=== PATIENT | male | born 1940 | race Caucasian/White ===

== ENCOUNTER 2024-03-07 11:46 | Inpatient (IN) | payer OTHER, MEDICARE ==
[~2024-03-07] VITALS: Ht 170.2 cm; Wt 55.5 kg
[2024-03-07 15:10] VITALS: BP 128/75
[2024-03-07] MEDS ORDERED: CLOPIDOGREL75 M2 PO (15:42)
[2024-03-07] MEDS ORDERED: LATANOPROST 2.2.5 ML OU (15:48)
[2024-03-07] MEDS ORDERED: LOSARTAN POTASS50 M1 PO (16:00)
[2024-03-07] MEDS ORDERED: SYNTHROID0.05 MG PO (16:02)
[2024-03-07] MEDS ORDERED: ROSUVASTATIN CA10 MG PO (16:03)
[2024-03-07] MEDS ORDERED: METFORMIN HYD1000 MG PO (16:08)
[2024-03-07] MEDS ORDERED: CETIRIZINE HCL10 MG PO (16:11)
[2024-03-07] MEDS ORDERED: ADULT LOW DOSE81 MG PO (16:14)
[2024-03-07] MEDS ORDERED: PROTONIX TR40 M1 PO (16:15)
[2024-03-07] MEDS ORDERED: LASIX20 M1 PO (16:16)
[2024-03-07] MEDS ORDERED: BENADRYL ALLERG25 M1 PO (16:17)
[2024-03-07] MEDS ORDERED: CYANOCOBAL1000 MCG/1 IM (16:24)
[2024-03-07] MEDS ORDERED: GLUCOSAMINE CH1 EAC5 PO (16:33)
[2024-03-07] MEDS ORDERED: HYDROCORTISON28.4 GM TP (16:35)
[2024-03-07] MEDS ORDERED: LIDODERM1 EACH TP (16:37)
[2024-03-07] MEDS ORDERED: NITROSTAT0.4 M1 SL (16:39)
[2024-03-07] MEDS ORDERED: PHILLIPS PO (16:39)
[2024-03-07] MEDS ORDERED: [UNRECOGNIZED DRUG - OTHER] PO (16:46)
[2024-03-07] MEDS ORDERED: PROBIOTIC1 EAC1 PO (16:47)
[2024-03-07] MEDS ORDERED: KLOR-CON 1010 MEQ PO (16:49)
[2024-03-07] MEDS ORDERED: PRESERVISION A1 EAC2 PO (16:49)
[2024-03-07] MEDS ORDERED: VITAMIN B-650 M2 PO (16:50)
[2024-03-07] MEDS ORDERED: VITAMIN D3125 MCG PO (16:52)
[2024-03-07] MEDS ORDERED: NOVOLOG FLEX100 U/ML SQ (17:03)
[2024-03-07] MEDS ORDERED: Ibuprofen 200 MG TAB PO PRN (17:15)
[2024-03-07] MEDS ORDERED: Polyethylene Glycol 3350 Powder 17 GM PACKET PO PRN (17:15)
[2024-03-07] MEDS ORDERED: Dextrose 50% Water 25 GM/50 ML SYRINGE IV PRN (17:30)
[2024-03-07] MEDS ORDERED: Dextrose (Glucose) 15 GM (4 x 3.75 GM) Chewable TAB PACK PO PRN (17:30)
[2024-03-07] MEDS ORDERED: oxyCODONE 5 MG TAB PO PRN (17:30)
[2024-03-07] MEDS ORDERED: diphenhydrAMINE 25 MG CAP PO PRN (17:30)
[2024-03-07] MEDS ORDERED: Glucagon 1 MG VIAL IM PRN (17:30)
[2024-03-07 19:00] VITALS: BP 121/71
[2024-03-07] MEDS ORDERED: Insulin Lispro (HumaLOG) SQ SCH (21:00)
[2024-03-07] MEDS ORDERED: Latanoprost 0.005% Ophth Soln 2.5 ML BOTTLE OP SCH (21:00)
[2024-03-08] MEDS ORDERED: Furosemide 20 MG TAB PO SCH (07:00)
[2024-03-08 07:37] LABS: BASO # 0.02 K/mm3 (0.02-0.10); EOS # 0.22 K/mm3 (0.04-0.40); EOS % 2.5 % (0.0-4.0); HEMATOCRIT 38.4 % (42.0-52.0); HEMOGLOBIN 12.1 g/dL (13.5-18.0); LYMPH# 1.86 K/mm3 (1.50-4.00); MEAN CELL VOLUME 103 fl (78-100); MEAN CORPUSCULAR HEMOGLOBIN 32 pg (27-31); MEAN CORPUSCULAR HGB CONC 32 g/dL (33-37); MEAN PLATELET VOLUME 10.8 fl (7.4-10.4); MONO # 0.76 K/mm3 (0.20-0.80); NEU # 5.84 K/mm3 (1.40-6.50); PLATELET COUNT 264 K/mm3 (130-400); RED BLOOD COUNT 3.73 M/mm3 (4.20-5.60); WHITE BLOOD COUNT 8.7 K/mm3 (4.8-10.8)
[2024-03-08 07:46] LABS: CALCIUM 9.6 mg/dL (8.3-10.5)
[2024-03-08 07:47] LABS: TOTAL PROTEIN 7.6 g/dL (6.2-8.1)
[2024-03-08 07:49] LABS: TOTAL BILIRUBIN 0.6 mg/dL (0.2-1.2)
[2024-03-08 07:54] VITALS: BP 109/76
[2024-03-08 07:54] LABS: MAGNESIUM 1.93 mg/dL (1.60-2.60)
[2024-03-08] MEDS ORDERED: Clopidogrel 75 MG TAB PO SCH (09:00)
[2024-03-08] MEDS ORDERED: Cetirizine 10 MG TAB PO SCH (09:00)
[2024-03-08] MEDS ORDERED: Lidocaine 4% Topical Patch TP SCH (09:00)
[2024-03-08] MEDS ORDERED: Magnesium Oxide 400 MG TAB PO SCH (09:00)
[2024-03-08] MEDS ORDERED: Losartan 50 MG TAB PO SCH (09:00)
[2024-03-08] MEDS ORDERED: Cholecalciferol (Vit D3) 25 MCG (1,000 Units) TAB PO SCH ×2 (09:00)
[2024-03-08 19:00] VITALS: BP 112/70
[2024-03-09 07:20] VITALS: BP 124/75
[2024-03-09] MEDS ORDERED: Furosemide 20 MG TAB PO SCH (09:00)
[2024-03-09 19:00] VITALS: BP 110/71
[2024-03-10 07:10] VITALS: BP 130/74
[2024-03-10 19:57] VITALS: BP 94/58
[2024-03-11] MEDS ORDERED: Docusate Sodium 100 MG CAP PO SCH (02:47)
[2024-03-11 07:15] VITALS: BP 115/65
[2024-03-11 19:00] VITALS: BP 115/66
[2024-03-12 07:20] VITALS: BP 143/73
[2024-03-12 09:11] LABS: BASO # 0.04 K/mm3 (0.02-0.10); EOS # 0.16 K/mm3 (0.04-0.40); EOS % 1.9 % (0.0-4.0); HEMATOCRIT 40.9 % (42.0-52.0); HEMOGLOBIN 12.8 g/dL (13.5-18.0); LYMPH# 1.93 K/mm3 (1.50-4.00); MEAN CELL VOLUME 103 fl (78-100); MEAN CORPUSCULAR HEMOGLOBIN 32 pg (27-31); MEAN CORPUSCULAR HGB CONC 31 g/dL (33-37); MEAN PLATELET VOLUME 10.5 fl (7.4-10.4); MONO # 0.59 K/mm3 (0.20-0.80); PLATELET COUNT 306 K/mm3 (130-400); RED BLOOD COUNT 3.99 M/mm3 (4.20-5.60); WHITE BLOOD COUNT 8.5 K/mm3 (4.8-10.8)
[2024-03-12 09:21] LABS: ALBUMIN 4.3 g/dL (3.4-4.8)
[2024-03-12 09:22] LABS: CALCIUM 9.8 mg/dL (8.3-10.5)
[2024-03-12 09:26] LABS: TOTAL BILIRUBIN 0.8 mg/dL (0.2-1.2)
[2024-03-12] MEDS ORDERED: Acetaminophen 500 MG TAB PO PRN (13:00)
[2024-03-12 20:00] VITALS: BP 101/64
[2024-03-13 07:13] VITALS: BP 125/73
[2024-03-13] MEDS ORDERED: Melatonin 3 MG TAB PO PRN (08:30)
[2024-03-13] MEDS ORDERED: tiZANidine 4 MG TABLET PO PRN (08:30)
[2024-03-13] MEDS ORDERED: Polyethylene Glycol 3350 Powder 17 GM PACKET PO PRN (17:26)
[2024-03-13 20:23] VITALS: BP 127/77
[2024-03-13] MEDS ORDERED: tiZANidine 4 MG TABLET PO SCH (21:00)
[2024-03-14 07:33] VITALS: BP 129/72
[2024-03-14] MEDS ORDERED: Sennosides/Docusate 8.6-50 MG TAB PO PRN (07:45)
[2024-03-14] MEDS ORDERED: Sodium Phosphates Rectal Enema 133 ML BOTTLE RC PRN (07:45)
[2024-03-14] MEDS ORDERED: Docusate Sodium 100 MG CAP PO SCH (09:00)
[2024-03-14 19:00] VITALS: BP 106/88
[2024-03-14] MEDS ORDERED: tiZANidine 4 MG TABLET PO SCH (21:00)
[2024-03-15 07:13] VITALS: BP 123/74
[2024-03-15 19:00] VITALS: BP 119/77
[2024-03-16 07:27] VITALS: BP 116/70
[2024-03-16 19:00] VITALS: BP 106/69
[2024-03-17 07:00] VITALS: BP 156/71
[2024-03-17 19:13] VITALS: BP 105/94
[2024-03-18 07:16] VITALS: BP 111/70
[2024-03-18 19:00] VITALS: BP 110/65
[2024-03-19 05:59] LABS: BASO # 0.04 K/mm3 (0.02-0.10); EOS # 0.21 K/mm3 (0.04-0.40); EOS % 3.1 % (0.0-4.0); HEMATOCRIT 32.1 % (42.0-52.0); HEMOGLOBIN 10.2 g/dL (13.5-18.0); LYMPH# 1.89 K/mm3 (1.50-4.00); MEAN CELL VOLUME 102 fl (78-100); MEAN CORPUSCULAR HEMOGLOBIN 33 pg (27-31); MEAN CORPUSCULAR HGB CONC 32 g/dL (33-37); MEAN PLATELET VOLUME 11.8 fl (7.4-10.4); MONO # 0.69 K/mm3 (0.20-0.80); NEU # 4.04 K/mm3 (1.40-6.50); PLATELET COUNT 224 K/mm3 (130-400); RED BLOOD COUNT 3.14 M/mm3 (4.20-5.60); RED CELL DISTRIBUTION WIDTH 14.2 % (11.5-14.5); WHITE BLOOD COUNT 6.9 K/mm3 (4.8-10.8)
[2024-03-19 06:15] LABS: ALBUMIN 3.8 g/dL (3.4-4.8)
[2024-03-19 06:16] LABS: CALCIUM 9.2 mg/dL (8.3-10.5)
[2024-03-19 06:18] LABS: TOTAL PROTEIN 6.9 g/dL (6.2-8.1)
[2024-03-19 06:19] LABS: TOTAL BILIRUBIN 0.6 mg/dL (0.2-1.2)
[2024-03-19 07:10] VITALS: BP 114/70
[2024-03-19] MEDS ORDERED: tiZANidine 4 MG TABLET PO PRN (10:09)
[2024-03-19] MEDS ORDERED: Acetaminophen 500 MG TAB PO SCH (12:00)
[2024-03-19 19:20] VITALS: BP 116/64; BP 183/71
[2024-03-20 07:10] VITALS: BP 132/66
[2024-03-20 19:33] VITALS: BP 108/65
[2024-03-21 06:31] LABS: BASO # 0.03 K/mm3 (0.02-0.10); EOS # 0.16 K/mm3 (0.04-0.40); EOS % 3.5 % (0.0-4.0); HEMATOCRIT 32.7 % (42.0-52.0); HEMOGLOBIN 10.5 g/dL (13.5-18.0); LYMPH# 1.39 K/mm3 (1.50-4.00); MEAN CELL VOLUME 101 fl (78-100); MEAN CORPUSCULAR HEMOGLOBIN 32 pg (27-31); MEAN CORPUSCULAR HGB CONC 32 g/dL (33-37); MEAN PLATELET VOLUME 12.2 fl (7.4-10.4); MONO # 0.43 K/mm3 (0.20-0.80); NEU # 2.62 K/mm3 (1.40-6.50); PLATELET COUNT 195 K/mm3 (130-400); RED BLOOD COUNT 3.24 M/mm3 (4.20-5.60); WHITE BLOOD COUNT 4.6 K/mm3 (4.8-10.8)
[2024-03-21 06:38] LABS: ALBUMIN 3.8 g/dL (3.4-4.8)
[2024-03-21 06:39] LABS: CALCIUM 9.2 mg/dL (8.3-10.5)
[2024-03-21 06:41] LABS: TOTAL PROTEIN 6.9 g/dL (6.2-8.1)
[2024-03-21 06:42] LABS: TOTAL BILIRUBIN 0.4 mg/dL (0.2-1.2)
[2024-03-21 07:10] VITALS: BP 138/72
[2024-03-21] MEDS ORDERED: Furosemide 20 MG TAB PO SCH (09:00)
[2024-03-21 19:00] VITALS: BP 110/66
[2024-03-22 07:12] VITALS: BP 145/70
[2024-03-22 19:41] VITALS: BP 110/67
[2024-03-23 07:57] VITALS: BP 134/64
[2024-03-23 20:00] VITALS: BP 118/70
[2024-03-24 07:36] LABS: CALCIUM 9.3 mg/dL (8.3-10.5)
[2024-03-24 07:37] VITALS: BP 116/62
[2024-03-24 19:00] VITALS: BP 108/63
[2024-03-25 07:19] VITALS: BP 123/64
[2024-03-25] MEDS ORDERED: Famotidine 20 MG TAB PO PRN (10:15)
[2024-03-25 19:15] VITALS: BP 128/75
[2024-03-26 06:11] LABS: BASO # 0.02 K/mm3 (0.02-0.10); EOS % 5.3 % (0.0-4.0); HEMATOCRIT 32.5 % (42.0-52.0); HEMOGLOBIN 10.4 g/dL (13.5-18.0); LYMPH# 1.17 K/mm3 (1.50-4.00); MEAN CELL VOLUME 103 fl (78-100); MEAN CORPUSCULAR HEMOGLOBIN 33 pg (27-31); MEAN CORPUSCULAR HGB CONC 32 g/dL (33-37); MEAN PLATELET VOLUME 11.4 fl (7.4-10.4); MONO # 0.59 K/mm3 (0.20-0.80); NEU # 3.57 K/mm3 (1.40-6.50); PLATELET COUNT 169 K/mm3 (130-400); RED BLOOD COUNT 3.15 M/mm3 (4.20-5.60); RED CELL DISTRIBUTION WIDTH 14.4 % (11.5-14.5); WHITE BLOOD COUNT 5.7 K/mm3 (4.8-10.8)
[2024-03-26 06:24] LABS: ALBUMIN 3.7 g/dL (3.4-4.8)
[2024-03-26 06:25] LABS: CALCIUM 9.5 mg/dL (8.3-10.5)
[2024-03-26 06:28] LABS: TOTAL BILIRUBIN 0.4 mg/dL (0.2-1.2)
[2024-03-26 07:28] VITALS: BP 148/71
[2024-03-26 19:33] VITALS: BP 112/71
[2024-03-27 07:30] VITALS: BP 151/76
[2024-03-27 19:44] VITALS: BP 136/66
[2024-03-28 07:14] VITALS: BP 153/72
[2024-03-28 19:47] VITALS: BP 106/68
[2024-03-29 07:30] VITALS: BP 132/74
[2024-03-29 19:24] VITALS: BP 120/66
[2024-03-30 07:44] VITALS: BP 127/74
[2024-03-30 19:25] VITALS: BP 115/74
[2024-03-31 05:28] LABS: BASO # 0.03 K/mm3 (0.02-0.10); EOS # 0.18 K/mm3 (0.04-0.40); EOS % 3.8 % (0.0-4.0); HEMATOCRIT 32.9 % (42.0-52.0); HEMOGLOBIN 10.4 g/dL (13.5-18.0); LYMPH# 1.62 K/mm3 (1.50-4.00); MEAN CELL VOLUME 104 fl (78-100); MEAN CORPUSCULAR HEMOGLOBIN 33 pg (27-31); MEAN CORPUSCULAR HGB CONC 32 g/dL (33-37); MEAN PLATELET VOLUME 10.1 fl (7.4-10.4); MONO # 0.42 K/mm3 (0.20-0.80); NEU # 2.51 K/mm3 (1.40-6.50); PLATELET COUNT 188 K/mm3 (130-400); RED BLOOD COUNT 3.18 M/mm3 (4.20-5.60); RED CELL DISTRIBUTION WIDTH 14.5 % (11.5-14.5); WHITE BLOOD COUNT 4.8 K/mm3 (4.8-10.8)
[2024-03-31 05:35] LABS: ALBUMIN 3.8 g/dL (3.4-4.8)
[2024-03-31 05:37] LABS: CALCIUM 9.4 mg/dL (8.3-10.5)
[2024-03-31 05:38] LABS: TOTAL PROTEIN 6.9 g/dL (6.2-8.1)
[2024-03-31 05:40] LABS: TOTAL BILIRUBIN 0.4 mg/dL (0.2-1.2)
[2024-03-31 07:13] VITALS: BP 138/72
[2024-03-31 19:37] VITALS: BP 134/69
[2024-04-01 07:18] VITALS: BP 130/76
[2024-04-01] MEDS ORDERED: TIZANIDINE HYDRO2 M1 PO (07:45)
[2024-04-01] MEDS ORDERED: OXYCODONE HYDROC5 M1 PO (07:45)
[2024-04-01] MEDS ORDERED: LOSARTAN POTASS50 M1 PO (07:45)
[2024-04-01] MEDS ORDERED: LASIX20 M1 PO (07:45)
[2024-04-01] MEDS ORDERED: SYNTHROID0.05 MG PO (07:45)
[2024-04-01] MEDS ORDERED: POLYETHYLE17 GM/Dose PO (07:45)
[2024-04-01] MEDS ORDERED: PHILLIPS PO (07:45)
[2024-04-01] MEDS ORDERED: CLOPIDOGREL75 M2 PO (07:45)
[2024-04-01] MEDS ORDERED: DOCUSATE SOD100 MG PO (07:45)
[2024-04-01] MEDS ORDERED: VITAMIN B-650 M2 PO (07:45)
[2024-04-01] MEDS ORDERED: ROSUVASTATIN CA10 MG PO (07:45)
[2024-04-01] MEDS ORDERED: KLOR-CON 1010 MEQ PO (07:45)
[2024-04-01] MEDS ORDERED: CARBIDOPA/LEVODOPA PO (07:45)
[2024-04-01] MEDS ORDERED: VITAMIN D3125 MCG PO (07:45)
[2024-04-01] MEDS ORDERED: CYANOCOBAL1000 MCG/1 IM (07:45)
[2024-04-01] MEDS ORDERED: METFORMIN HYD1000 MG PO (07:45)
[2024-04-01] MEDS ORDERED: NITROSTAT0.4 M1 SL (07:45)
[2024-04-01] MEDS ORDERED: ADULT LOW DOSE81 MG PO (07:45)
[2024-04-01] MEDS ORDERED: PROTONIX TR40 M1 PO (07:45)
[2024-04-01] MEDS ORDERED: ACETAMINOPHEN500 M5 PO (07:45)
[2024-04-01] MEDS ORDERED: CETIRIZINE HCL10 MG PO (07:45)
[2024-04-01] MEDS ORDERED: ACIDOPHILUS PR0.5 MG PO (07:45)
== END 2024-04-01 08:50 | disposition home health service (06) | DRG 560 ==
LOC: MED/SURG 11:46
PROVIDERS: Family Medicine; ADMIT Family Medicine
DX: S22.089D Unspecified fracture of T11-T12 vertebra, subsequent encounter for fracture with routine healing (principal); A94 Unspecified arthropod-borne viral fever; M45.4 Ankylosing spondylitis of thoracic region; M48.14 Ankylosing hyperostosis [Forestier], thoracic region; K20.90 Esophagitis, unspecified without bleeding; E11.9 Type 2 diabetes mellitus without complications; Z79.4 Long term (current) use of insulin; I10 Essential (primary) hypertension; I25.10 Atherosclerotic heart disease of native coronary artery without angina pectoris; E03.9 Hypothyroidism, unspecified; D51.9 Vitamin B12 deficiency anemia, unspecified; E78.5 Hyperlipidemia, unspecified; G20.C Parkinsonism, unspecified; R53.81 Other malaise; Z79.84 Long term (current) use of oral hypoglycemic drugs; Z79.82 Long term (current) use of aspirin; Z79.890 Hormone replacement therapy; Z95.5 Presence of coronary angioplasty implant and graft; V89.2XXD Person injured in unspecified motor-vehicle accident, traffic, subsequent encounter; Z88.2 Allergy status to sulfonamides; Z88.8 Allergy status to other drugs, medicaments and biological substances
CPT/HCPCS: A9270-GY; J1815; J3420

== ENCOUNTER 2024-05-15 16:09 | Inpatient (IN) | payer MEDICARE, OTHER ==
[~2024-05-15] VITALS: Ht 170.2 cm; Wt 47.4 kg
[~2024-05-15 16:09] MED LIST: ACETAMINOPHEN500 M5 PO; ACIDOPHILUS PR0.5 MG PO; ADULT LOW DOSE81 MG PO; BENADRYL ALLERG25 M1 PO; CARBIDOPA/LEVODOPA PO; CETIRIZINE HCL10 MG PO; CLOPIDOGREL75 M2 PO; CYANOCOBAL1000 MCG/1 IM; DOCUSATE SOD100 MG PO; GLUCOSAMINE CH1 EAC5 PO; HYDROCORTISON28.4 GM TP; KLOR-CON 1010 MEQ PO; LASIX20 M1 PO; LATANOPROST 2.2.5 ML OU; LIDODERM1 EACH TP; LOSARTAN POTASS50 M1 PO; METFORMIN HYD1000 MG PO; NITROSTAT0.4 M1 SL; NOVOLOG FLEX100 U/ML SQ; OXYCODONE HYDROC5 M1 PO; PHILLIPS PO; POLYETHYLE17 GM/Dose PO; PRESERVISION A1 EAC2 PO; PROBIOTIC1 EAC1 PO; PROTONIX TR40 M1 PO; ROSUVASTATIN CA10 MG PO; SYNTHROID0.05 MG PO; TIZANIDINE HYDRO2 M1 PO; VITAMIN B-650 M2 PO; VITAMIN D3125 MCG PO; [UNRECOGNIZED DRUG - OTHER] PO
[2024-05-15 16:45] VITALS: BP 146/77
[2024-05-15] MEDS ORDERED: CHOLESTYRAMINE P4 GM PO (17:03)
[2024-05-15] MEDS ORDERED: ZOFRAN ODT4 MG PO (17:09)
[2024-05-15] MEDS ORDERED: Acetaminophen 325 MG TAB PO PRN (18:15)
[2024-05-15] MEDS ORDERED: Naloxone 0.4 MG/ML VIAL IV PRN (18:15)
[2024-05-15] MEDS ORDERED: oxyCODONE 5 MG TAB PO PRN (18:15)
[2024-05-15 18:28] LABS: BASO # 0.02 K/mm3 (0.02-0.10); EOS # 0.08 K/mm3 (0.04-0.40); EOS % 1.3 % (0.0-4.0); HEMATOCRIT 35.7 % (42.0-52.0); HEMOGLOBIN 11.3 g/dL (13.5-18.0); LYMPH# 1.61 K/mm3 (1.50-4.00); MEAN CELL VOLUME 104 fl (78-100); MEAN CORPUSCULAR HEMOGLOBIN 33 pg (27-31); MEAN CORPUSCULAR HGB CONC 32 g/dL (33-37); MEAN PLATELET VOLUME 10.7 fl (7.4-10.4); MONO # 0.65 K/mm3 (0.20-0.80); NEU # 3.65 K/mm3 (1.40-6.50); PLATELET COUNT 213 K/mm3 (130-400); RED BLOOD COUNT 3.44 M/mm3 (4.20-5.60); RED CELL DISTRIBUTION WIDTH 14.6 % (11.5-14.5)
[2024-05-15 18:36] LABS: ALBUMIN 3.9 g/dL (3.4-4.8)
[2024-05-15 18:38] LABS: CALCIUM 9.5 mg/dL (8.3-10.5)
[2024-05-15 18:39] LABS: TOTAL PROTEIN 7.1 g/dL (6.2-8.1)
[2024-05-15 18:41] LABS: TOTAL BILIRUBIN 0.5 mg/dL (0.2-1.2)
[2024-05-15 19:27] VITALS: BP 113/60; BP 151/77
[2024-05-15] MEDS ORDERED: metFORMIN 500 MG TAB PO SCH ×2 (19:38→21:00)
[2024-05-15] MEDS ORDERED: Insulin Lispro (HumaLOG) SQ SCH (21:00)
[2024-05-15] MEDS ORDERED: tiZANidine 4 MG TABLET PO SCH (21:00)
[2024-05-15] MEDS ORDERED: Latanoprost 0.005% Ophth Soln 2.5 ML BOTTLE OP SCH (21:00)
[2024-05-15] MEDS ORDERED: Docusate Sodium 100 MG CAP PO SCH (21:00)
[2024-05-16 07:00] VITALS: BP 152/71
[2024-05-16] MEDS ORDERED: Furosemide 20 MG TAB PO SCH (09:00)
[2024-05-16] MEDS ORDERED: Clopidogrel 75 MG TAB PO SCH (09:00)
[2024-05-16] MEDS ORDERED: Magnesium Oxide 400 MG TAB PO SCH (09:00)
[2024-05-16] MEDS ORDERED: Cholecalciferol (Vit D3) 25 MCG (1,000 Units) TAB PO SCH (09:00)
[2024-05-16 19:40] VITALS: BP 113/74
[2024-05-17 07:20] VITALS: BP 132/75
[2024-05-17 19:58] VITALS: BP 121/69
[2024-05-18 07:00] VITALS: BP 119/73
[2024-05-18 19:15] VITALS: BP 119/70
[2024-05-19 07:00] VITALS: BP 131/67
[2024-05-19 19:00] VITALS: BP 128/75
[2024-05-20 07:20] VITALS: BP 135/74
[2024-05-20 07:25] LABS: BASO # 0.02 K/mm3 (0.02-0.10); EOS # 0.05 K/mm3 (0.04-0.40); EOS % 0.7 % (0.0-4.0); HEMOGLOBIN 10.5 g/dL (13.5-18.0); LYMPH# 1.78 K/mm3 (1.50-4.00); MEAN CELL VOLUME 103 fl (78-100); MEAN CORPUSCULAR HEMOGLOBIN 33 pg (27-31); MEAN CORPUSCULAR HGB CONC 32 g/dL (33-37); MEAN PLATELET VOLUME 10.6 fl (7.4-10.4); MONO # 0.54 K/mm3 (0.20-0.80); NEU # 4.58 K/mm3 (1.40-6.50); PLATELET COUNT 222 K/mm3 (130-400); RED CELL DISTRIBUTION WIDTH 14.9 % (11.5-14.5)
[2024-05-20 07:36] LABS: ALBUMIN 3.8 g/dL (3.4-4.8); SODIUM 137 mmol/L (136-145)
[2024-05-20 07:37] LABS: CALCIUM 9.7 mg/dL (8.3-10.5)
[2024-05-20 07:38] LABS: GLUCOSE 156 mg/dL (75-110)
[2024-05-20 07:39] LABS: TOTAL PROTEIN 6.8 g/dL (6.2-8.1)
[2024-05-20 07:40] LABS: CARBON DIOXIDE 23 mmol/L (23-31); TOTAL BILIRUBIN 0.4 mg/dL (0.2-1.2)
[2024-05-20 07:44] LABS: AST-SGOT 17 U/L (5-34)
[2024-05-20 07:49] LABS: ALT/SGPT < 6 U/L (0-55)
[2024-05-20 20:18] VITALS: BP 126/84
[2024-05-20] MEDS ORDERED: Insulin Glargine-yfgn (Lantus) SQ SCH (21:00)
[2024-05-21 07:35] VITALS: BP 128/71
[2024-05-21 20:39] VITALS: BP 121/78
[2024-05-22 07:30] VITALS: BP 124/72
[2024-05-22 19:15] VITALS: BP 123/71
[2024-05-23 07:13] VITALS: BP 146/75
[2024-05-23 19:00] VITALS: BP 122/72
[2024-05-24 07:26] VITALS: BP 146/80
[2024-05-24 19:00] VITALS: BP 116/75
[2024-05-25 07:10] VITALS: BP 136/74
[2024-05-25 20:28] VITALS: BP 128/79
[2024-05-26 07:28] VITALS: BP 137/81
[2024-05-26 19:45] VITALS: BP 112/74
[2024-05-27 07:24] VITALS: BP 123/75
[2024-05-27 19:00] VITALS: BP 128/70
[2024-05-28 07:20] VITALS: BP 138/75
[2024-05-28 07:50] LABS: BASO # 0.02 K/mm3 (0.02-0.10); EOS # 0.08 K/mm3 (0.04-0.40); EOS % 1.2 % (0.0-4.0); HEMATOCRIT 32.1 % (42.0-52.0); HEMOGLOBIN 10.3 g/dL (13.5-18.0); MEAN CELL VOLUME 105 fl (78-100); MEAN CORPUSCULAR HEMOGLOBIN 34 pg (27-31); MEAN CORPUSCULAR HGB CONC 32 g/dL (33-37); MEAN PLATELET VOLUME 10.9 fl (7.4-10.4); MONO # 0.62 K/mm3 (0.20-0.80); NEU # 4.02 K/mm3 (1.40-6.50); PLATELET COUNT 230 K/mm3 (130-400); RED BLOOD COUNT 3.06 M/mm3 (4.20-5.60); RED CELL DISTRIBUTION WIDTH 15.6 % (11.5-14.5); WHITE BLOOD COUNT 6.9 K/mm3 (4.8-10.8)
[2024-05-28 07:57] LABS: ALBUMIN 3.9 g/dL (3.4-4.8)
[2024-05-28 07:58] LABS: SODIUM 137 mmol/L (136-145)
[2024-05-28 08:00] LABS: GLUCOSE 109 mg/dL (75-110); TOTAL PROTEIN 6.4 g/dL (6.2-8.1)
[2024-05-28 08:01] LABS: CARBON DIOXIDE 25 mmol/L (23-31)
[2024-05-28 08:02] LABS: TOTAL BILIRUBIN 0.4 mg/dL (0.2-1.2)
[2024-05-28 08:05] LABS: AST-SGOT 15 U/L (5-34)
[2024-05-28 08:07] LABS: ALT/SGPT < 6 U/L (0-55)
[2024-05-28] MEDS ORDERED: Sertraline 50 MG TAB PO SCH (12:20)
[2024-05-28] MEDS ORDERED: Oxybutynin 5 MG TAB PO SCH (17:23)
[2024-05-28 19:15] VITALS: BP 112/75
[2024-05-29 07:24] VITALS: BP 120/72
[2024-05-29 19:36] VITALS: BP 118/71
[2024-05-30 07:10] VITALS: BP 153/72
[2024-05-30 19:30] VITALS: BP 119/72
[2024-05-30 20:35] LABS: BASO # 0.02 K/mm3 (0.02-0.10); EOS # 0.12 K/mm3 (0.04-0.40); EOS % 1.1 % (0.0-4.0); HEMOGLOBIN 11.1 g/dL (13.5-18.0); LYMPH# 1.83 K/mm3 (1.50-4.00); MEAN CELL VOLUME 105 fl (78-100); MEAN CORPUSCULAR HEMOGLOBIN 33 pg (27-31); MEAN CORPUSCULAR HGB CONC 32 g/dL (33-37); MEAN PLATELET VOLUME 10.5 fl (7.4-10.4); MONO # 1.03 K/mm3 (0.20-0.80); NEU # 7.79 K/mm3 (1.40-6.50); PLATELET COUNT 252 K/mm3 (130-400); RED BLOOD COUNT 3.32 M/mm3 (4.20-5.60); RED CELL DISTRIBUTION WIDTH 15.6 % (11.5-14.5); WHITE BLOOD COUNT 10.8 K/mm3 (4.8-10.8)
[2024-05-30 20:38] LABS: ALBUMIN 4.4 g/dL (3.4-4.8); SODIUM 136 mmol/L (136-145)
[2024-05-30 20:40] LABS: CALCIUM 10.4 mg/dL (8.3-10.5)
[2024-05-30 20:41] LABS: GLUCOSE 104 mg/dL (75-110); TOTAL PROTEIN 7.9 g/dL (6.2-8.1)
[2024-05-30 20:42] LABS: CARBON DIOXIDE 21 mmol/L (23-31)
[2024-05-30 20:43] LABS: TOTAL BILIRUBIN 0.5 mg/dL (0.2-1.2)
[2024-05-30 20:46] LABS: AST-SGOT 16 U/L (5-34)
[2024-05-30 20:49] LABS: ALT/SGPT < 6 U/L (0-55)
[2024-05-31 08:11] LABS: BASO # 0.01 K/mm3 (0.02-0.10); EOS # 0.14 K/mm3 (0.04-0.40); EOS % 1.7 % (0.0-4.0); HEMATOCRIT 32.3 % (42.0-52.0); HEMOGLOBIN 10.4 g/dL (13.5-18.0); LYMPH# 1.65 K/mm3 (1.50-4.00); MEAN CELL VOLUME 105 fl (78-100); MEAN CORPUSCULAR HEMOGLOBIN 34 pg (27-31); MEAN CORPUSCULAR HGB CONC 32 g/dL (33-37); MONO # 0.95 K/mm3 (0.20-0.80); NEU # 5.41 K/mm3 (1.40-6.50); PLATELET COUNT 204 K/mm3 (130-400); RED BLOOD COUNT 3.09 M/mm3 (4.20-5.60); RED CELL DISTRIBUTION WIDTH 15.2 % (11.5-14.5); WHITE BLOOD COUNT 8.2 K/mm3 (4.8-10.8)
[2024-05-31 08:24] LABS: ALBUMIN 3.9 g/dL (3.4-4.8); SODIUM 134 mmol/L (136-145)
[2024-05-31 08:25] LABS: CALCIUM 9.9 mg/dL (8.3-10.5)
[2024-05-31 08:26] LABS: GLUCOSE 85 mg/dL (75-110)
[2024-05-31 08:27] LABS: CARBON DIOXIDE 23 mmol/L (23-31)
[2024-05-31 08:28] LABS: TOTAL BILIRUBIN 0.6 mg/dL (0.2-1.2)
[2024-05-31 08:31] LABS: AST-SGOT 16 U/L (5-34)
[2024-05-31 08:39] LABS: ALT/SGPT < 6 U/L (0-55)
[2024-05-31 08:53] VITALS: BP 124/68
[2024-05-31 13:31] LABS: PH-URINE 7.5 (5.0 - 8.0); URINE COLOR YELLOW (YELLOW); URINE GLUCOSE NEGATIVE (NEGATIVE); URINE PROTEIN(semi-quant) NEGATIVE (NEGATIVE)
[2024-05-31 13:32] LABS: URINE APPEARANCE SLIGHTLY CLOUDY (CLEAR); URINE BILIRUBIN 1+ (NEGATIVE); URINE BLOOD NEGATIVE (NEGATIVE); URINE KETONE 1+ (NEGATIVE); URINE LEUKOCYTE ESTERASE NEGATIVE (NEGATIVE); URINE NITRATE NEGATIVE (NEGATIVE)
[2024-05-31 13:33] LABS: URINE MUCUS PRESENT (NOT PRESENT)
[2024-05-31 19:25] VITALS: BP 102/71
[2024-06-01 07:20] VITALS: BP 157/77
[2024-06-01 19:00] VITALS: BP 163/84
[2024-06-02 08:30] VITALS: BP 135/76
[2024-06-02 19:00] VITALS: BP 127/77
[2024-06-03 08:11] VITALS: BP 147/78
[2024-06-03] MEDS ORDERED: Cholecalciferol (Vit D3) 125 MCG (5,000 Units) Capsule PO SCH (09:00)
[2024-06-03 19:00] VITALS: BP 135/81
[2024-06-03] MEDS ORDERED: Insulin Glargine-yfgn (Lantus) SQ SCH (21:00)
[2024-06-04 07:20] VITALS: BP 159/83
[2024-06-04 07:31] LABS: BASO # 0.02 K/mm3 (0.02-0.10); EOS # 0.09 K/mm3 (0.04-0.40); EOS % 1.3 % (0.0-4.0); HEMATOCRIT 31.2 % (42.0-52.0); HEMOGLOBIN 10.4 g/dL (13.5-18.0); MEAN CELL VOLUME 101 fl (78-100); MEAN CORPUSCULAR HEMOGLOBIN 34 pg (27-31); MEAN CORPUSCULAR HGB CONC 33 g/dL (33-37); MEAN PLATELET VOLUME 10.5 fl (7.4-10.4); MONO # 0.78 K/mm3 (0.20-0.80); PLATELET COUNT 243 K/mm3 (130-400); RED BLOOD COUNT 3.09 M/mm3 (4.20-5.60); RED CELL DISTRIBUTION WIDTH 14.8 % (11.5-14.5)
[2024-06-04 07:34] LABS: ALBUMIN 3.9 g/dL (3.4-4.8)
[2024-06-04 07:35] LABS: SODIUM 133 mmol/L (136-145)
[2024-06-04 07:37] LABS: TOTAL PROTEIN 6.9 g/dL (6.2-8.1)
[2024-06-04 07:38] LABS: CALCIUM 9.3 mg/dL (8.3-10.5)
[2024-06-04 07:39] LABS: GLUCOSE 92 mg/dL (75-110)
[2024-06-04 07:40] LABS: CARBON DIOXIDE 21 mmol/L (23-31)
[2024-06-04 07:41] LABS: TOTAL BILIRUBIN 0.5 mg/dL (0.2-1.2)
[2024-06-04 07:42] LABS: AST-SGOT 19 U/L (5-34)
[2024-06-04 07:47] LABS: ALT/SGPT < 6 U/L (0-55)
[2024-06-04 19:00] VITALS: BP 172/82
[2024-06-05 07:30] VITALS: BP 151/77
[2024-06-05 19:30] VITALS: BP 155/92
[2024-06-06 07:20] VITALS: BP 151/85
[2024-06-06 19:00] VITALS: BP 133/81
[2024-06-07 07:00] VITALS: BP 155/79
[2024-06-07 19:35] VITALS: BP 121/79
[2024-06-08 07:13] VITALS: BP 155/82
[2024-06-08 19:25] VITALS: BP 125/76
[2024-06-09 05:41] LABS: BASO # 0.03 K/mm3 (0.02-0.10); EOS # 0.13 K/mm3 (0.04-0.40); EOS % 1.5 % (0.0-4.0); HEMOGLOBIN 10.3 g/dL (13.5-18.0); MEAN CELL VOLUME 107 fl (78-100); MEAN CORPUSCULAR HEMOGLOBIN 34 pg (27-31); MEAN CORPUSCULAR HGB CONC 32 g/dL (33-37); MEAN PLATELET VOLUME 10.1 fl (7.4-10.4); MONO # 0.69 K/mm3 (0.20-0.80); PLATELET COUNT 254 K/mm3 (130-400); RED CELL DISTRIBUTION WIDTH 15.5 % (11.5-14.5); WHITE BLOOD COUNT 8.9 K/mm3 (4.8-10.8)
[2024-06-09 05:49] LABS: ALBUMIN 3.9 g/dL (3.4-4.8)
[2024-06-09 05:51] LABS: CALCIUM 9.7 mg/dL (8.3-10.5)
[2024-06-09 05:52] LABS: TOTAL PROTEIN 6.8 g/dL (6.2-8.1)
[2024-06-09 05:54] LABS: TOTAL BILIRUBIN 0.3 mg/dL (0.2-1.2)
[2024-06-09 07:20] VITALS: BP 152/78
[2024-06-09 19:00] VITALS: BP 135/84; BP 137/81
[2024-06-10 07:18] VITALS: BP 150/72
[2024-06-10] MEDS ORDERED: ZOLOFT25 M1 PO (08:00)
[2024-06-10] MEDS ORDERED: LATANOPROST 2.2.5 ML OU (08:02)
[2024-06-10] MEDS ORDERED: SENNA-LAX8.6 MG PO (08:04)
[2024-06-10] MEDS ORDERED: ZOFRAN ODT4 MG PO (08:05)
[2024-06-10] MEDS ORDERED: INSULIN GL100 UNIT/2 SQ (08:10)
[2024-06-10] MEDS ORDERED: MEGACE 40MG40 MG/TAB PO (08:10)
[2024-06-10] MEDS ORDERED: HYDROCORTISON28.4 GM TP (08:11)
[2024-06-10 18:13] VITALS: BP 150/72
== END 2024-06-10 11:10 | DRG 56 ==
LOC: MED/SURG 16:09
PROVIDERS: Family Medicine; Nurse Practitioner; ADMIT Family Medicine
DX: G20.A1 Parkinson's disease without dyskinesia, without mention of fluctuations (principal); E43 Unspecified severe protein-calorie malnutrition; N17.0 Acute kidney failure with tubular necrosis; Z68.1 Body mass index [BMI] 19.9 or less, adult; E87.20 Acidosis, unspecified; F01.50 Vascular dementia, unspecified severity, without behavioral disturbance, psychotic disturbance, mood disturbance, and anxiety; I10 Essential (primary) hypertension; I25.10 Atherosclerotic heart disease of native coronary artery without angina pectoris; D63.8 Anemia in other chronic diseases classified elsewhere; E11.9 Type 2 diabetes mellitus without complications; E03.9 Hypothyroidism, unspecified; R62.7 Adult failure to thrive; J44.9 Chronic obstructive pulmonary disease, unspecified; G47.33 Obstructive sleep apnea (adult) (pediatric); R13.10 Dysphagia, unspecified; E78.5 Hyperlipidemia, unspecified; J30.9 Allergic rhinitis, unspecified; K52.9 Noninfective gastroenteritis and colitis, unspecified; R63.4 Abnormal weight loss; Z79.891 Long term (current) use of opiate analgesic; Z79.84 Long term (current) use of oral hypoglycemic drugs; Z79.82 Long term (current) use of aspirin; Z79.890 Hormone replacement therapy; Z79.899 Other long term (current) drug therapy; Z95.5 Presence of coronary angioplasty implant and graft; Z86.73 Personal history of transient ischemic attack (TIA), and cerebral infarction without residual deficits; Z88.2 Allergy status to sulfonamides
CPT/HCPCS: A9270-GY; J1815; J3420